=== PATIENT | male | born 1960 | race Caucasian/White ===

== ENCOUNTER 2016-10-31 23:52 | Observation (INO) | payer OTHER ==
--- NOTE | 2016-11-01 00:06 | PDOC ---
History of Present Illness - History of Present Illness Initial Comments: 11/01/16 00:32 Patient is a 56 year old male with significant medical hx of GERD, mitral valve prolapse, HTN, and HLD who is presenting to the ED with two days of progressive , intermittent chest pain. Patient complains of midsternal, non-radiating chest pain that worsens with positional change, specifically bending over. He also notes that his pain is present when lying flat. Patient denies any shortness of breath, nausea, vomiting, palpitations, or diaphoresis. His last stress test was a year and a half ago that was reportedly WNL. PCP: Jacob Ryan MD GI: Philipp Mcmillan MD Allergies: Sulfa <Becca Hopper - Last Filed: 11/01/16 00:32> <Rell Newton - Last Filed: 11/01/16 02:09> - General Stated Complaint: CHEST PAIN Time Seen by Provider: 11/01/16 00:04 Past History <Becca Hopper - Last Filed: 11/01/16 00:32> - Past Medical History Cardiac Disorders: (MVP) GI Disorders: Yes (ACID REFLUX) HTN: Yes Hypercholesterolemia: Yes - Surgical History Orthopedic Surgery: Yes (RIGHT HAND SX '95) - Psycho/Social/Smoking Cessation Hx Smoking History: Former smoker Have you smoked in the past 12 months: No If you are a former smoker, when did you quit?: 30YRS AGO Hx Alcohol Use: Yes (RARE) Substance Use Type: Alcohol <Rell Newton - Last Filed: 11/01/16 02:09> - Past Medical History Allergies/Adverse Reactions: Allergies Allergy/AdvReac Type Severity Reaction Status Date / Time Sulfa (Sulfonamide Allergy Intermediate Itching Verified 11/01/16 00:56 Antibiotics) Home Medications: Ambulatory Orders Aspirin [Aspirin EC] 81 mg PO DAILY 03/10/14 Enalapril Maleate [Vasotec -] 5 mg PO DAILY 03/10/14 Simvastatin 20 mg PO DAILY 11/01/16 Tamsulosin HCl [Flomax] 0.4 mg PO DAILY 11/01/16 Review of Systems - Review of Systems Comments:: 11/01/16 00:33 GENERAL/CONSTITUTIONAL: No fever or chills. No weakness. HEAD, EYES, EARS, NOSE AND THROAT: No change in vision. No ear pain or discharge. No sore throat. CARDIOVASCULAR: Chest pain. No shortness of breath. RESPIRATORY: No cough, wheezing, or hemoptysis. GASTROINTESTINAL: No nausea, vomiting, diarrhea or constipation. GENITOURINARY: No dysuria, frequency, or change in urination. MUSCULOSKELETAL: No joint or muscle swelling or pain. No neck or back pain. ENDOCRINE: No increased thirst. No abnormal weight change. SKIN: No rash NEUROLOGIC: No headache, vertigo, loss of consciousness, or change in strength/ sensation. <Becca Hopper - Last Filed: 11/01/16 00:32> *Physical Exam - Physical Exam Comments: 11/01/16 00:35 GENERAL: Awake, alert, and fully oriented, in no acute distress HEAD: No signs of trauma EYES: PERRLA, EOMI, sclera anicteric, conjunctiva clear ENT: Auricles normal inspection, hearing grossly normal, nares patent, oropharynx clear without exudates. Moist mucosa NECK: Normal ROM, supple, no lymphadenopathy, JVD, or masses LUNGS: Breath sounds equal, clear to auscultation bilaterally. No wheezes, and no crackles HEART: Regular rate and rhythm, normal S1 and S2, no murmurs, rubs or gallops ABDOMEN: Soft, nontender, normoactive bowel sounds. No guarding, no rebound. No masses EXTREMITIES: Normal range of motion, no edema. No clubbing or cyanosis. No cords, erythema, or tenderness NEUROLOGICAL: Cranial nerves II through XII grossly intact. Normal speech, normal gait SKIN: Warm, Dry, normal turgor, no rashes or lesions noted. HEMATOLOGIC/LYMPHATIC: No anemia, easy bleeding, or history of blood clots. ALLERGIC/IMMUNOLOGIC: No hives or skin allergy. <Becca Hopper - Last Filed: 11/01/16 00:32> Heart Score/ECG Review #1 11/01/16 00:36 Normal sinus rhythm at 86 bpm Normal ECG <Becca Hopper - Last Filed: 11/01/16 00:32> ED Treatment Course - LABORATORY CBC & Chemistry Diagram: 11/01/16 00:55 11/01/16 00:55 <Rell Newton - Last Filed: 11/01/16 02:09> *DC/Admit/Observation/Transfer - Attestations Scribe Attestion: 11/01/16 00:36 Documentation prepared by Becca Hopper, acting as biomedical service engineer for Rell Newton MD. <Becca Hopper - Last Filed: 11/01/16 00:32> - Discharge Dispostion Admit: Yes - Attestations Physician Attestion: 11/01/16 00:05 I, Dr. Rell Newton, attest that this document has been prepared under my direction and personally reviewed by me in its entirety. I further attest, that it accurately reflects all work, treatment, procedures and medical decision -making performed by me. <Rell Newton - Last Filed: 11/01/16 02:09> Diagnosis at time of Disposition: Acute coronary syndrome Chest pain Qualifiers: Chest pain type: unspecified Qualified Code(s): R07.9 - Chest pain, unspecified - Discharge Dispostion Condition at time of disposition: Unchanged/Unknown - Referrals Referrals: Jacob Ryan MD [Primary Care Provider] -
[2016-11-01] MEDS ORDERED: SODIUM CHLORIDE 1,000 ML IV SCH (00:15)
[2016-11-01 00:57] VITALS: BMI 30.4
[2016-11-01 01:04] LABS: BASOPHIL 0.5 % (0-2.0); EOSINOPHIL 4.1 % (0-4.5); MCH 31.2 pg (25.7-33.7); MCHC 33.6 g/dl (32.0-35.9); MEAN PLT VOLUME 6.8 fl (7.5-11.1); NEUTROPHILS 63.8 % (42.8-82.8); PLATELET COUNT 266 K/MM3 (134-434); RDW 12.6 % (11.9-15.9); WHITE BLOOD COUNT 10.2 K/mm3 (4.0-10.0)
[2016-11-01 01:32] LABS: INR 0.99 (0.82-1.09); PROTHROMBIN TIME (PATIENT) 10.9 SEC (9.98-11.88)
[2016-11-01 01:43] LABS: ALBUMIN 3.3 g/dl (3.4-5.0); ANION GAP 10 (8-16); BILIRUBIN,TOTAL 0.4 mg/dL (0.2-1.0); CALCIUM 8.4 mg/dL (8.5-10.1); CO2 26 mmol/L (21-32); CREATININE 0.9 mg/dL (0.7-1.3); GLUCOSE,RANDOM 114 mg/dL (74-106); MAGNESIUM 2.1 mg/dL (1.8-2.4); SGOT/AST 16 U/L (15-37); SGPT/ALT 34 U/L (12-78); TOT PROT 6.5 g/dl (6.4-8.2)
[2016-11-01 01:46] LABS: ALK PHOS 87 U/L (45-117); TROPONIN I < 0.02 ng/ml (0.00-0.05)
[2016-11-01 07:22] LABS: MCHC 34.4 g/dl (32.0-35.9); MEAN CELL VOLUME 93.1 fl (80-96); MEAN PLT VOLUME 6.9 fl (7.5-11.1); PLATELET COUNT 261 K/MM3 (134-434); RDW 12.8 % (11.9-15.9); WHITE BLOOD COUNT 10.2 K/mm3 (4.0-10.0)
[2016-11-01 07:45] LABS: ALBUMIN 3.6 g/dl (3.4-5.0); ANION GAP 7 (8-16); BILIRUBIN,TOTAL 0.7 mg/dL (0.2-1.0); CALCIUM 8.8 mg/dL (8.5-10.1); CO2 30 mmol/L (21-32); CREATININE 0.8 mg/dL (0.7-1.3); GLUCOSE,RANDOM 89 mg/dL (74-106); SGPT/ALT 34 U/L (12-78)
[2016-11-01 07:46] LABS: ALK PHOS 81 U/L (45-117); TOT PROT 6.9 g/dl (6.4-8.2)
[2016-11-01 09:02] LABS: SGOT/AST 17 U/L (15-37)
--- NOTE | 2016-11-01 09:10 | EKG ---
Test Reason : Blood Pressure : / mmHG Vent. Rate : 073 BPM Atrial Rate : 073 BPM P-R Int : 170 ms QRS Dur : 076 ms QT Int : 358 ms P-R-T Axes : 050 010 019 degrees QTc Int : 394 ms NORMAL SINUS RHYTHM NORMAL ECG WHEN COMPARED WITH ECG OF 01-NOV-2016 00:05, NO SIGNIFICANT CHANGE WAS FOUND Confirmed by MELANIE VILLALOBOS MD ([id number]) on 11/01/2016 9:10:24 AM Referred By: CHARLES DAVIS Confirmed By:MELANIE VILLALOBOS MD
--- NOTE | 2016-11-01 09:13 | EKG ---
Test Reason : Blood Pressure : / mmHG Vent. Rate : 086 BPM Atrial Rate : 086 BPM P-R Int : 164 ms QRS Dur : 074 ms QT Int : 344 ms P-R-T Axes : 056 013 023 degrees QTc Int : 411 ms NORMAL SINUS RHYTHM NORMAL ECG WHEN COMPARED WITH ECG OF 10-MAR-2014 10:30, NO SIGNIFICANT CHANGE WAS FOUND Confirmed by MELANIE VILLALOBOS MD ([id number]) on 11/01/2016 9:13:22 AM Referred By: Confirmed By:MELANIE VILLALOBOS MD
[2016-11-01 09:41] LABS: TROPONIN I < 0.02 ng/ml (0.00-0.05)
[2016-11-01] MEDS ORDERED: ASPIRIN 81 MG CHEWABLE TABLETS PO SCH (10:00)
[2016-11-01] MEDS ORDERED: PANTOPRAZOLE 20 MG TABLET (FP) PO SCH (10:00)
[2016-11-01] MEDS ORDERED: ENALAPRIL MALEATE 5 MG TABLET (FP) PO SCH (10:00)
--- NOTE | 2016-11-01 11:08 | CON.CARD ---
Cardiology Consult (text) - Consultation Consultation Note: cc: cp hpi: 56 m hx htn, hld, gerd, here with cp. Pt has no hx cad/mi. Was feeling well until yesterday when he noticed left achey chest pain during day. Mild pain but constant during day and worse with moving torso, bending. Improved today. No associated sxs. No sob, palps, dizzy, loc, pnd, orthopnea, le edema. Does a lot of heavy lifting for job, thinks he may have sore muscle. pmh: per hpi psh: hand surgery social: no tob fam: no premature cad/scd ros: per hpi; no nvd, cough, holm, vision changes, nasal congestion, rash, gib, hematuria, fever meds: Home Medications Medication Instructions Recorded Aspirin [Aspirin EC] 81 mg PO DAILY 03/10/14 Enalapril Maleate [Vasotec -] 5 mg PO DAILY 03/10/14 Simvastatin 20 mg PO DAILY 11/01/16 Tamsulosin HCl [Flomax] 0.4 mg PO DAILY 11/01/16 pe: Vital Signs Period Temp Pulse Resp BP Sys/Sellers Pulse Ox Last 24 Hr 97.9 F-98.6 F 72-81 17-20 118-142/80-94 98-100 nad no jvd rrr s1s2 no mrg cta bl nl eff aaox3 no le e/c/c abd nt nd pos bs no jaundice diaphoresis pos dp pt no carotid bruits +chest wall tenderness Laboratory Last Values WBC 10.2 K/mm3 (4.0-10.0) H 11/01/16 05:35 RBC 4.88 M/mm3 (4.00-5.60) 11/01/16 05:35 Hgb 15.6 GM/dL (11.7-16.9) 11/01/16 05:35 Hct 45.4 % (35.4-49) 11/01/16 05:35 MCV 93.1 fl (80-96) 11/01/16 05:35 MCH 32.0 pg (25.7-33.7) 11/01/16 05:35 MCHC 34.4 g/dl (32.0-35.9) 11/01/16 05:35 RDW 12.8 % (11.9-15.9) 11/01/16 05:35 Plt Count 261 K/MM3 (134-434) 11/01/16 05:35 MPV 6.9 fl (7.5-11.1) L 11/01/16 05:35 Neutrophils % 63.8 % (42.8-82.8) D 11/01/16 00:55 Lymphocytes % 24.7 % (8-40) D 11/01/16 00:55 Monocytes % 6.9 % (3.8-10.2) 11/01/16 00:55 Eosinophils % 4.1 % (0-4.5) 11/01/16 00:55 Basophils % 0.5 % (0-2.0) 11/01/16 00:55 INR 0.99 (0.82-1.09) 11/01/16 00:55 Sodium 138 mmol/L (136-145) 11/01/16 05:35 Potassium 4.3 mmol/L (3.5-5.1) 11/01/16 05:35 Chloride 101 mmol/L (98-107) 11/01/16 05:35 Carbon Dioxide 30 mmol/L (21-32) 11/01/16 05:35 Anion Gap 7 (8-16) L 11/01/16 05:35 BUN 16 mg/dL (7-18) 11/01/16 05:35 Creatinine 0.8 mg/dL (0.7-1.3) 11/01/16 05:35 Creat Clearance w eGFR > 60 (>60) 11/01/16 05:35 Random Glucose 89 mg/dL (74-106) D 11/01/16 05:35 Calcium 8.8 mg/dL (8.5-10.1) 11/01/16 05:35 Magnesium 2.1 mg/dL (1.8-2.4) 11/01/16 00:55 Total Bilirubin 0.7 mg/dL (0.2-1.0) D 11/01/16 05:35 AST 17 U/L (15-37) 11/01/16 05:35 ALT 34 U/L (12-78) 11/01/16 05:35 Alkaline Phosphatase 81 U/L (45-117) 11/01/16 05:35 Creatine Kinase 60 IU/L (39-308) 11/01/16 08:50 Troponin I < 0.02 ng/ml (0.00-0.05) 11/01/16 08:50 B-Natriuretic Peptide 10.92 pg/ml (5-125) 11/01/16 00:55 Total Protein 6.9 g/dl (6.4-8.2) 11/01/16 05:35 Albumin 3.6 g/dl (3.4-5.0) 11/01/16 05:35 tele: sr, artifact ecg 11/01/16: sr, nl intervals, no ischemic changes cta chest: clear lungs, no pe, no aortic aneurysm or dissection a/p: 56 m hx htn, hld, gerd, here with cp. cp: -atypical cp with MSK features -ce's neg x2, ecg unremarkable -no signs acs, likely noncardiac cp -will eval further with echo and ETT, if both unremarkable then ok for dc today from cardiac pov htn: -cont rinku hld: -cont home statin
--- NOTE | 2016-11-01 12:06 | HP ---
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 - Smoking History Smoking history: Former smoker Have you smoked in the past 12 months: No If you are a former smoker, when did you quit?: 30YRS AGO - Alcohol/Substance Use Hx Alcohol Use: Yes (RARE) History of Substance Use: reports: None (no abuse but on testosterone pellets) Home Medications - Allergies Allergies/Adverse Reactions: Allergies Allergy/AdvReac Type Severity Reaction Status Date / Time Sulfa (Sulfonamide Allergy Intermediate Itching Verified 11/01/16 00:56 Antibiotics) - Home Medications Home Medications: Ambulatory Orders Aspirin [Aspirin EC] 81 mg PO DAILY 03/10/14 Enalapril Maleate [Vasotec -] 5 mg PO DAILY 03/10/14 Simvastatin 20 mg PO DAILY 11/01/16 Tamsulosin HCl [Flomax] 0.4 mg PO DAILY 11/01/16 Family Disease History - Family Disease History Family History: Unremarkable Review of Systems - Review of Systems Constitutional: reports: Other (cp) Eyes: reports: No Symptoms HENT: reports: No Symptoms Neck: reports: No Symptoms Cardiovascular: reports: Shortness of Breath Respiratory: reports: No Symptoms Gastrointestinal: reports: No Symptoms Genitourinary: reports: Frequency Breasts: reports: No Symptoms Reported Musculoskeletal: reports: No Symptoms Integumentary: reports: No Symptoms Neurological: reports: No Symptoms Endocrine: reports: No Symptoms Hematology/Lymphatic: reports: No Symptoms Psychiatric: reports: No Symptoms Physical Examination Vital Signs: Vital Signs Temperature 97.9 F 11/01/16 08:35 Pulse Rate 75 11/01/16 08:35 Respiratory Rate 18 11/01/16 08:35 Blood Pressure 132/86 11/01/16 08:35 O2 Sat by Pulse Oximetry (%) 98 11/01/16 03:05 Constitutional: Yes: Well Nourished Eyes: Yes: WNL HENT: Yes: WNL Neck: Yes: WNL Cardiovascular: Yes: WNL Respiratory: Yes: WNL Gastrointestinal: Yes: WNL ...Rectal Exam: Yes: WNL Renal/: Yes: WNL Breast(s): Yes: WNL Musculoskeletal: Yes: WNL Extremities: Yes: WNL Labs: CBC, BMP 11/01/16 05:35 11/01/16 05:35 Assessment/Plan may need syess yest outpt d/c today home
--- NOTE | 2016-11-01 14:11 | TRE ---
Protocol Name : TAMMIE Max Work Load (METS*10) : 101 Time In Exercise Phase : 00:08:00 Max. Systolic BP : 190 mmHg Max Diastolic BP : 92 mmHg Max Heart Rate : 144 BPM Max Predicted Heart Rate : 162 BPM Attending Physician : MELANIE VILLALOBOS Reason For Termination : Target Heart Rate Achieved Reason for Test : CHEST PAIN Stress Protocol : TAMMIE Rest HR : 96 BPM PeakEx METs : 10.1 METS Recovery ECG Response (OLD) : Diagnosis : The baseline ECG showed NSR at 80bpm. The patient completed 8 minutes of a standard Tammie protocol achieving a work load of 10 METS. The resting heart rate of 80bpm can to a maximum of 144bpm, representing 88% of age predicted maximum heart rate. The resting BP of 142/89 can to a peak of 190/92, appropriate response to exercise. He remained asymptomatic during exercise. There were no ischemic ST changes during exercise nor during recovery. A single VPC was noted during exercise. CONCLUSION: 1. Good exercise capacity. 2. Asymptomatic during the exam. 3. Negative ETT. 4. No arrhythmias and normal blood pressure response to exercise. Confirmed by MELANIE VILLALOBOS MD ([id number]) on 11/01/2016 2:10:59 PM
[2016-11-01 15:13] VITALS: BP 138/71; PULSE 95; TEMP 98
== END 2016-11-01 15:47 | disposition home or self-care (01) ==
LOC: JER 23:52 → JERBED 11-01 02:09 → J4W 11-01 03:48
PROVIDERS: ADMIT Family Medicine; ATTEND Family Medicine
PROC: 3E0337Z Introduction of Electrolytic and Water Balance Substance into Peripheral Vein, Percutaneous Approach (ICD-10-PCS; principal; 2016-11-01)
DX: R07.89 Other chest pain (principal); I10 Essential (primary) hypertension; K21.9 Gastro-esophageal reflux disease without esophagitis; I34.1 Nonrheumatic mitral (valve) prolapse; E78.00 Pure hypercholesterolemia, unspecified; Z86.2 Personal history of diseases of the blood and blood-forming organs and certain disorders involving the immune mechanism; Z79.82 Long term (current) use of aspirin; Z87.891 Personal history of nicotine dependence; G30.9 Alzheimer's disease, unspecified
CPT/HCPCS: 36415; 71010-TC; 71275-TC; 80053; 82550; 83735; 83880; 84484; 85025; 85027; 85610; 93005; 93010; 93017; 93018; 93306-TC; 99283-25; G0378

== ENCOUNTER 2021-02-28 06:22 | Emergency (ER) | payer OTHER ==
[2021-02-28 06:34] VITALS: BMI 30.4
[2021-02-28] MEDS ORDERED: SODIUM CHLORIDE 500 ML IV STA (07:22)
[2021-02-28 08:01] LABS: BASO % 0.8 % (0-2.0); EOS % 1.8 % (0-4.5); HEMATOCRIT 43.1 % (35.4-49); HEMOGLOBIN 14.9 GM/dL (11.7-16.9); LYMPH % 18.3 % (8-40); MCH 31.5 pg (25.7-33.7); MCHC 34.5 g/dl (32.0-35.9); MEAN CELL VOLUME 91.2 fl (80-96); MEAN PLT VOLUME 6.8 fl (7.5-11.1); MONO % 6.4 % (3.8-10.2); NEUT % 72.7 % (42.8-82.8); PLATELET COUNT 235 10^3/uL (134-434); RBC 4.73 M/mm3 (4.00-5.60); RDW 13.9 % (11.9-15.9); WHITE BLOOD COUNT 7.1 K/mm3 (4.0-10.0)
[2021-02-28 08:10] LABS: CHLORIDE 105 mmol/L (98-107); SODIUM 138 mmol/L (136-145)
[2021-02-28 08:12] LABS: ALBUMIN 3.8 g/dl (3.4-5.0); ANION GAP 6 MMOL/L (8-16); BLOOD UREA NITROGEN 9.6 mg/dL (7-18); CALCIUM 9.2 mg/dL (8.5-10.1); CO2 28 mmol/L (21-32); GLUCOSE,RANDOM 103 mg/dL (74-106); MAGNESIUM 2.4 mg/dL (1.8-2.4)
[2021-02-28 08:15] LABS: SGPT/ALT 47 U/L (13-61)
[2021-02-28 08:17] LABS: BILIRUBIN,TOTAL 0.3 mg/dL (0.2-1); TOT PROT 7.3 g/dl (6.4-8.2)
[2021-02-28 08:18] LABS: ALK PHOS 94 U/L (45-117)
[2021-02-28 08:21] LABS: SGOT/AST 21 U/L (15-37)
[2021-02-28 13:06] VITALS: BP 116/73; PULSE 71; TEMP 97.9
== END 2021-02-28 13:06 | disposition home or self-care (01) ==
LOC: JER 06:22
PROC: 3E0337Z Introduction of Electrolytic and Water Balance Substance into Peripheral Vein, Percutaneous Approach (ICD-10-PCS; principal; 2021-02-28)
DX: R06.02 Shortness of breath (principal)
CPT/HCPCS: 36415; 71045-TC-FY; 80053; 82550; 83735; 84484; 85025; 85379; 93005; 93010; 99285-25

== ENCOUNTER 2021-11-12 19:15 | Inpatient (IN) | payer OTHER ==
[2021-11-12 23:10] LABS: BASO % 0.9 % (0-2.0); EOS % 3.9 % (0-4.5); HEMATOCRIT 39.7 % (35.4-49); HEMOGLOBIN 13.6 GM/dL (11.7-16.9); LYMPH % 13.8 % (8-40); MCH 30.6 pg (25.7-33.7); MCHC 34.2 g/dl (32.0-35.9); MEAN CELL VOLUME 89.3 fl (80-96); MEAN PLT VOLUME 6.6 fl (7.5-11.1); NEUT % 73.4 % (42.8-82.8); PLATELET COUNT 249 10^3/uL (134-434); RBC 4.44 M/mm3 (4.00-5.60); RDW 13.1 % (11.9-15.9); WHITE BLOOD COUNT 8.3 K/mm3 (4.0-10.0)
[2021-11-12 23:13] LABS: EPI CELLS 3 /uL (0-25.1); HYALINE CASTS 1 /uL (0-3.1); PH,URINE 5.5 (5.0-8.0); URINE APPEARANCE CLEAR; URINE BACTERIA 13 /uL (0-1359); URINE BILIRUBIN NEGATIVE (NEGATIVE); URINE COLOR YELLOW; URINE GLUCOSE (UA) NEGATIVE (NEGATIVE); URINE KETONE NEGATIVE (NEGATIVE); URINE LEUK ESTERASE NEGATIVE (NEGATIVE); URINE NITRITE NEGATIVE (NEGATIVE); URINE PROTEIN NEGATIVE (NEGATIVE); URINE RBC 19 /uL (0-23.9); URINE UROBILINOGEN 0.2 mg/dL (0.2-1.0); URINE WBC 3 /uL (0-25.8)
[2021-11-12 23:57] LABS: CHLORIDE 104 mmol/L (98-107); SODIUM 138 mmol/L (136-145)
[2021-11-12 23:59] LABS: CALCIUM 8.8 mg/dL (8.5-10.1)
[2021-11-13] LABS: ALBUMIN 3.1 g/dl (3.4-5.0); ANION GAP 7 MMOL/L (8-16); BLOOD UREA NITROGEN 18.8 mg/dL (7-18); CO2 27 mmol/L (21-32); GLUCOSE,RANDOM 104 mg/dL (74-106)
[2021-11-13 00:03] LABS: SGOT/AST 14 U/L (15-37); SGPT/ALT 24 U/L (13-61)
[2021-11-13 00:04] LABS: TOT PROT 8.7 g/dl (6.4-8.2)
[2021-11-13 00:05] LABS: BILIRUBIN,TOTAL 0.2 mg/dL (0.2-1)
[2021-11-13 00:06] LABS: ALK PHOS 84 U/L (45-117)
[2021-11-13 05:58] VITALS: BMI 29.7
[2021-11-13] MEDS: ASPIRIN COATED 81 MG TABLET.EC PO SCH (10:35)
[2021-11-13] MEDS ORDERED: ENALAPRIL MALEATE 2.5 MG TABLET PO SCH (11:00)
[2021-11-13] MEDS: ATENOLOL 25 MG TABLET (FP) PO SCH (12:37)
[2021-11-13] MEDS: ROSUVASTATIN CA 20 MG TABLET PO SCH (21:09)
[2021-11-14 07:29] LABS: EOS % 7.5 % (0-4.5); HEMATOCRIT 42.4 % (35.4-49); HEMOGLOBIN 14.3 GM/dL (11.7-16.9); MCH 30.6 pg (25.7-33.7); MCHC 33.6 g/dl (32.0-35.9); MEAN CELL VOLUME 91.1 fl (80-96); MEAN PLT VOLUME 7.3 fl (7.5-11.1); MONO % 8.6 % (3.8-10.2); NEUT % 61.9 % (42.8-82.8); PLATELET COUNT 289 10^3/uL (134-434); RBC 4.66 M/mm3 (4.00-5.60); WHITE BLOOD COUNT 9.2 K/mm3 (4.0-10.0)
[2021-11-14 07:57] LABS: BLOOD UREA NITROGEN 16.1 mg/dL (7-18); CALCIUM 8.8 mg/dL (8.5-10.1)
[2021-11-14 07:58] LABS: ALBUMIN 3.1 g/dl (3.4-5.0)
[2021-11-14 08:02] LABS: TOT PROT 9.1 g/dl (6.4-8.2)
[2021-11-14 08:03] LABS: BILIRUBIN,TOTAL 0.4 mg/dL (0.2-1)
[2021-11-14] MEDS: MECLIZINE HCL 25 MG TABLET (FP) PO PRN ×2 (08:24→22:25)
[2021-11-14] MEDS: TAMSULOSIN HCL 0.4 MG CAP PO SCH (08:24)
[2021-11-14] MEDS: ATENOLOL 25 MG TABLET (FP) PO SCH (09:01)
[2021-11-14] MEDS: ASPIRIN COATED 81 MG TABLET.EC PO SCH (09:01)
[2021-11-14] MEDS: ROSUVASTATIN CA 20 MG TABLET PO SCH (22:23)
[2021-11-15] MEDS: TAMSULOSIN HCL 0.4 MG CAP PO SCH (08:36)
[2021-11-15] MEDS: MECLIZINE HCL 25 MG TABLET (FP) PO PRN (09:14)
[2021-11-15] MEDS: ASPIRIN COATED 81 MG TABLET.EC PO SCH (09:14)
[2021-11-15] MEDS: ATENOLOL 25 MG TABLET (FP) PO SCH (09:14)
[2021-11-15 10:53] VITALS: BP 132/81; PULSE 82; RESP 18; TEMP 98.2
== END 2021-11-15 14:12 | disposition home or self-care (01) | DRG 312 ==
LOC: JER 19:15 → JERBED 23:50 → J4W 11-13 05:35 → OBSVTOIN 11-14 08:19
PROVIDERS: ADMIT Family Medicine; ATTEND Family Medicine
DX: R55 Syncope and collapse (principal); K21.9 Gastro-esophageal reflux disease without esophagitis; I10 Essential (primary) hypertension; R26.81 Unsteadiness on feet; R51.9 Headache, unspecified
CPT/HCPCS: 36415; 70450-TC; 70552-TC; 71045-TC-FY; 80053; 81003; 84484; 85025; 93005; 93010; 97116-GP; 97161-GP; 99285-25; A9579; C1887; C9803-CS; G0378; U0003; U0005

== ENCOUNTER 2022-05-21 04:38 | Day surgery (SDC) | payer OTHER ==
[2022-05-20 11:21] VITALS: BMI 28.1
[2022-05-21 16:36] VITALS: TEMP 97
[2022-05-22 08:01] VITALS: BP 112/75; PULSE 74; RESP 16
== END 2022-05-21 10:30 | disposition home or self-care (01) ==
LOC: JASU-ENDO 04:38
PROVIDERS: ATTEND Student in an Organized Health Care Education/Training Program
PROC: 0DB78ZX Excision of Stomach, Pylorus, Via Natural or Artificial Opening Endoscopic, Diagnostic (ICD-10-PCS; 2022-05-21)
PROC: 0DB68ZX Excision of Stomach, Via Natural or Artificial Opening Endoscopic, Diagnostic (ICD-10-PCS; principal; 2022-05-21 08:30)
DX: K29.70 Gastritis, unspecified, without bleeding (principal)
CPT/HCPCS: 88305-TC; 88341-TC; 88342-TC

== ENCOUNTER 2023-05-26 04:06 | Day surgery (SDC) | payer OTHER ==
[2023-05-21 15:48] VITALS: BMI 31.4
[2023-05-26 09:11] VITALS: RESP 18
[2023-05-26] MEDS ORDERED: MIDAZOLAM HCL 2 MG/2 ML SINGLE DOSE VIAL ONE (12:42)
[2023-05-26 15:57] VITALS: BP 131/76; PULSE 78; TEMP 97.8
== END 2023-05-26 15:25 | disposition home or self-care (01) ==
LOC: JASU-SURG 04:06
PROVIDERS: ATTEND Urology
PROC: 0TF4XZZ Fragmentation in Left Kidney Pelvis, External Approach (ICD-10-PCS; principal; 2023-05-26 11:00)
DX: N20.0 Calculus of kidney (principal)